=== PATIENT | male | born 1985 | race African-American/Black ===

== ENCOUNTER 2020-07-20 15:33 | Emergency (ER) | payer MEDICAID ==
[~2020-07-20] VITALS: Ht 175.3 cm; Wt 104.3 kg
[2020-07-20 16:04] VITALS: BP 189/95
[2020-07-20] MEDS ORDERED: LIDOCAINE 1% HCL (LOCAL ANESTH.) INJ 20ML MDV IJ ONE (17:00)
== END 2020-07-20 17:22 | disposition home or self-care (01) ==
LOC: ER 15:33
DX: S61.511A Laceration without foreign body of right wrist, initial encounter (principal); W22.8XXA Striking against or struck by other objects, initial encounter; Y93.89 Activity, other specified; Y92.89 Other specified places as the place of occurrence of the external cause; Y99.8 Other external cause status
CPT/HCPCS: 12002